=== PATIENT | male | born 2000 | race African-American/Black ===

== ENCOUNTER 2024-01-15 12:00 | Emergency (ER) | payer OTHER ==
[2024-01-15 12:09] VITALS: BP 133/85; PULSE 72; RESP 20; TEMP 98.4; BMI 33.7
[2024-01-15] MEDS ORDERED: IBUPROFEN 600 MG TABLET (FP) PO ONE (12:24)
[2024-01-15] MEDS ORDERED: ACETAMINOPHEN 500 MG TABLET (FP) ONE (12:24)
[2024-01-15] MEDS: IBUPROFEN 600 MG TABLET (FP) PO ONE (12:30)
[2024-01-15] MEDS: ACETAMINOPHEN 500 MG TABLET (FP) PO ONE (12:30)
== END 2024-01-15 14:16 | disposition home or self-care (01) ==
LOC: JERFT 12:00
DX: S89.91XA Unspecified injury of right lower leg, initial encounter (principal); M25.561 Pain in right knee; W10.8XXA Fall (on) (from) other stairs and steps, initial encounter; X50.1XXA Overexertion from prolonged static or awkward postures, initial encounter; Y93.01 Activity, walking, marching and hiking
CPT/HCPCS: 73562-TC-RT-FY; 99283-25